=== PATIENT | female | born 1955 | race Caucasian/White ===

== ENCOUNTER 2019-08-14 11:26 | Emergency (ER) | payer MEDICARE, MEDICAID ==
[~2019-08-14] VITALS: Ht 157.5 cm; Wt 62.0 kg
[2019-08-14] MEDS ORDERED: KETOROLAC 30MG/ML VIAL IV STA (12:35)
[2019-08-14] MEDS ORDERED: SODIUM CHLORIDE 0.9% 1,000 ML IV ONE (12:35)
[2019-08-14] MEDS ORDERED: ONDANSETRON HCL 4MG/2ML INJ IV STA (12:35)
[2019-08-14] MEDS ORDERED: DICYCLOMINE 10 MG/5 ML ORAL SYR PO STA (12:35)
[2019-08-14] MEDS ORDERED: VISCOUS LIDOCAINE 2% 15 ML UDC PO STA (12:35)
[2019-08-14] MEDS ORDERED: MAGNESIUM/ALUMINUM HYDROXIDE/SIMETHICONE 30ML UDC PO STA ×2 (12:35)
[2019-08-14 13:09] LABS: CHLORIDE 106 mEq/L (98-107)
[2019-08-14 13:13] LABS: EOSINOPHILS % 0.4 % (0.0-5.0); HEMATOCRIT. 45.5 % (36.0-48.0); HEMOGLOBIN. 15.5 g/dL (12.0-16.0); LYMPHOCYTES % 28.1 % (20.0-50.0); MEAN CORPUSCULAR HEMOGLOBIN 28.1 pg (28.0-32.0); MEAN CORPUSCULAR VOLUME 82.8 fL (81.0-99.0); MEAN PLATELET VOLUME 7.7 fl (7.4-10.4); MONOCYTES % 5.3 % (2.0-8.0); NEUTROPHILS % 65.2 % (40.0-76.0); PLATELET 574 x1000/uL (130-400); RED CELL DISTRIBUTION WIDTH 12.9 % (11.6-14.6)
[2019-08-14 13:26] LABS: PROTHROMBIN TIME 10.1 sec (9.6-11.0)
[2019-08-14] MEDS ORDERED: POTASSIUM CHLORIDE 20MEQ TABLET SR PO ONE (14:30)
[2019-08-14] MEDS ORDERED: PANTOPRAZOLE SODIUM 40 MG/VIAL IV ONE (15:45)
[2019-08-14 22:28] VITALS: BP 132/76
== END 2019-08-14 22:54 | disposition short-term general hospital (02) ==
LOC: ER 11:26 → SUPCPDRO 17:00 → CANBEDREQ 19:10 → ER 22:54
DX: E87.6 Hypokalemia (principal); R11.2 Nausea with vomiting, unspecified; R00.1 Bradycardia, unspecified
CPT/HCPCS: 36415; 71045; 74176; 80053; 83690; 83735; 85025; 85610; 93005; 96361; 96365; 96375; 99285; C9113; J1885; J2405; J7030

== ENCOUNTER 2019-10-03 12:54 | Emergency (ER) | payer MEDICARE, MEDICAID ==
[~2019-10-03] VITALS: Ht 157.5 cm; Wt 68.0 kg
[2019-10-03] MEDS ORDERED: VISCOUS LIDOCAINE 2% 15 ML UDC PO STA (14:25)
[2019-10-03] MEDS ORDERED: FAMOTIDINE 20MG/2ML VIAL IV STA (14:25)
[2019-10-03] MEDS ORDERED: SODIUM CHLORIDE 0.9% 1,000 ML IV ONE (14:25)
[2019-10-03] MEDS ORDERED: MAGNESIUM/ALUMINUM HYDROXIDE/SIMETHICONE 30ML UDC PO STA (14:25)
[2019-10-03 14:44] LABS: BASOPHILS % 0.9 % (0.0-2.0); EOSINOPHILS % 0.4 % (0.0-5.0); HEMATOCRIT. 45.1 % (36.0-48.0); HEMOGLOBIN. 15.3 g/dL (12.0-16.0); LYMPHOCYTES % 28.2 % (20.0-50.0); MEAN CORPUSCULAR HEMOGLOBIN 28.4 pg (28.0-32.0); MEAN CORPUSCULAR VOLUME 83.5 fL (81.0-99.0); MEAN PLATELET VOLUME 7.9 fl (7.4-10.4); MONOCYTES % 7.5 % (2.0-8.0); PLATELET 482 x1000/uL (130-400); RED CELL DISTRIBUTION WIDTH 13.6 % (11.6-14.6)
[2019-10-03 14:50] LABS: CHLORIDE 101 mEq/L (98-107)
[2019-10-03 14:52] LABS: CLARITY URINE CLEAR (CLEAR); COLOR URINE YELLOW (YELLOW); KETONES URINE NEGATIVE (NEGATIVE); LEUKOCYTE ESTERASE URINE NEGATIVE (NEGATIVE); NITRITE URINE NEGATIVE (NEGATIVE); OCCULT BLOOD URINE NEGATIVE (NEGATIVE); PH URINE 7.5 (4.5-8.0); PROTEIN URINE NEGATIVE (NEGATIVE); SPECIFIC GRAVITY URINE 1.003 (1.005-1.030); UROBILINOGEN URINE 0.2 E.U./dL (0.2-1.0)
[2019-10-03 14:54] LABS: INR 1.1; PROTHROMBIN TIME 11.4 sec (9.6-11.0)
[2019-10-03] MEDS ORDERED: POTASSIUM CHLORIDE INJ 40 MEQ in DEXT 5% WATER 250 ML IV ONE (15:45)
[2019-10-03] MEDS ORDERED: POTASSIUM CHLORIDE 20MEQ TABLET SR PO ONE (15:45)
[2019-10-03 19:39] VITALS: BP 122/76
== END 2019-10-03 19:40 | disposition home or self-care (01) ==
LOC: ER 12:54
DX: E87.6 Hypokalemia (principal); K21.9 Gastro-esophageal reflux disease without esophagitis; Z88.0 Allergy status to penicillin; Z90.49 Acquired absence of other specified parts of digestive tract; Z98.890 Other specified postprocedural states
CPT/HCPCS: 36415; 80053; 81003; 82270; 83690; 83735; 85025; 85610; 96365; 96366; 96375; 99285; J3480; J3490; J7030; J7060

== ENCOUNTER 2019-11-30 16:13 | Emergency (ER) | payer MEDICARE, MEDICAID ==
[~2019-11-30] VITALS: Ht 154.9 cm; Wt 61.0 kg
[2019-11-30] MEDS ORDERED: FAMOTIDINE 20MG/2ML VIAL IV STA (17:07)
[2019-11-30] MEDS ORDERED: SODIUM CHLORIDE 0.9% 1,000 ML IV ONE (17:07)
[2019-11-30 18:03] LABS: BASOPHILS % 1.5 % (0.0-2.0); EOSINOPHILS % 0.4 % (0.0-5.0); HEMATOCRIT. 43.3 % (36.0-48.0); HEMOGLOBIN. 14.7 g/dL (12.0-16.0); LYMPHOCYTES % 24.9 % (20.0-50.0); MEAN CORPUSCULAR HEMOGLOBIN 28.6 pg (28.0-32.0); MEAN CORPUSCULAR VOLUME 83.9 fL (81.0-99.0); MEAN PLATELET VOLUME 7.5 fl (7.4-10.4); MONOCYTES % 8.1 % (2.0-8.0); NEUTROPHILS % 65.1 % (40.0-76.0); PLATELET 529 x1000/uL (130-400); RED BLOOD CELL COUNT 5.16 mill/uL (4.2-5.4); RED CELL DISTRIBUTION WIDTH 14.5 % (11.6-14.6)
[2019-11-30 18:08] LABS: CHLORIDE 98 mEq/L (98-107)
[2019-11-30 18:11] LABS: PROTHROMBIN TIME 10.8 sec (9.6-11.0)
[2019-11-30] MEDS ORDERED: KETOROLAC 15MG/ML VIAL IV ONE (18:30)
[2019-11-30 20:47] VITALS: BP 135/66
== END 2019-11-30 21:30 | disposition short-term general hospital (02) ==
LOC: ER 16:13 → CANBEDREQ 23:46
DX: R07.89 Other chest pain (principal); R10.9 Unspecified abdominal pain; K21.9 Gastro-esophageal reflux disease without esophagitis; Z90.49 Acquired absence of other specified parts of digestive tract; Z88.0 Allergy status to penicillin; Z98.890 Other specified postprocedural states
CPT/HCPCS: 36415; 71045; 80053; 83690; 84484; 85025; 85610; 93005; 96361; 96374; 96375; 99285; J1885; J3490; J7030

== ENCOUNTER 2020-01-27 23:59 | Emergency (ER) | payer MEDICARE, OTHER ==
[~2020-01-27] VITALS: Ht 154.9 cm; Wt 50.0 kg
[2020-01-28] MEDS ORDERED: ONDANSETRON HCL 4MG/2ML INJ IV STA (00:40)
[2020-01-28] MEDS ORDERED: SODIUM CHLORIDE 0.9% 1,000 ML IV ONE (00:40)
[2020-01-28 01:06] LABS: CHLORIDE 99 mEq/L (98-107)
[2020-01-28 01:08] LABS: BASOPHILS % 0.9 % (0.0-2.0); EOSINOPHILS % 0.7 % (0.0-5.0); HEMATOCRIT. 44.8 % (36.0-48.0); HEMOGLOBIN. 15.7 g/dL (12.0-16.0); LYMPHOCYTES % 32.9 % (20.0-50.0); MEAN CORPUSCULAR HEMOGLOBIN 29.6 pg (28.0-32.0); MEAN CORPUSCULAR VOLUME 84.7 fL (81.0-99.0); MEAN PLATELET VOLUME 8.4 fl (7.4-10.4); MONOCYTES % 8.3 % (2.0-8.0); NEUTROPHILS % 57.2 % (40.0-76.0); PLATELET 552 x1000/uL (130-400); RED BLOOD CELL COUNT 5.29 mill/uL (4.2-5.4); RED CELL DISTRIBUTION WIDTH 13.7 % (11.6-14.6)
[2020-01-28] MEDS ORDERED: POTASSIUM CHLORIDE 20MEQ TABLET SR PO ONE (02:00)
[2020-01-28] MEDS ORDERED: IOHEXOL-300 100 ML BOTTLE ONE (03:10)
[2020-01-28] MEDS ORDERED: ACETAMINOPHEN 325MG TABLET PO ONE (03:45)
[2020-01-28 04:57] VITALS: BP 115/56
== END 2020-01-28 04:58 | disposition home or self-care (01) ==
LOC: ER 23:59
DX: E87.6 Hypokalemia (principal); R06.00 Dyspnea, unspecified; K21.9 Gastro-esophageal reflux disease without esophagitis; M54.2 Cervicalgia; I10 Essential (primary) hypertension; E03.9 Hypothyroidism, unspecified
CPT/HCPCS: 36415; 70491; 71045; 80053; 83690; 84484; 85025; 93005; 99285; J2405; J7030; Q9967

== ENCOUNTER 2021-09-05 13:43 | Emergency (ER) | payer OTHER, MEDICAID ==
[~2021-09-05] VITALS: Ht 154.9 cm; Wt 72.0 kg
[2021-09-05 15:43] LABS: BASOPHILS % 0.6 % (0.0-2.0); EOSINOPHILS % 0.4 % (0.0-5.0); HEMOGLOBIN. 15.2 g/dL (12.0-16.0); LYMPHOCYTES % 16.5 % (20.0-50.0); MEAN CORPUSCULAR HEMOGLOBIN 27.8 pg (28.0-32.0); MEAN CORPUSCULAR VOLUME 84.2 fL (81.0-99.0); MEAN PLATELET VOLUME 7.2 fl (7.4-10.4); MONOCYTES % 6.9 % (2.0-8.0); NEUTROPHILS % 75.6 % (40.0-76.0); PLATELET 642 x1000/uL (130-400); RED BLOOD CELL COUNT 5.46 mill/uL (4.2-5.4)
[2021-09-05 19:15] LABS: CLARITY URINE CLOUDY (CLEAR); COLOR URINE DARK YELLOW (YELLOW); KETONES URINE 1+ (NEGATIVE); LEUKOCYTE ESTERASE URINE TRACE (NEGATIVE); NITRITE URINE NEGATIVE (NEGATIVE); OCCULT BLOOD URINE NEGATIVE (NEGATIVE); PROTEIN URINE 1+ (NEGATIVE); SPECIFIC GRAVITY URINE 1.027 (1.005-1.030)
[2021-09-05] MEDS ORDERED: NITR-87 MT (21:36)
[2021-09-05] MEDS ORDERED: NITROFURANTOIN 100MG M/M CAPSULE PO NR (21:45)
[2021-09-05 22:00] VITALS: BP 138/86
== END 2021-09-05 22:10 | disposition home or self-care (01) ==
LOC: ER 13:43
DX: R33.8 Other retention of urine (principal); D72.829 Elevated white blood cell count, unspecified; I10 Essential (primary) hypertension; E05.90 Thyrotoxicosis, unspecified without thyrotoxic crisis or storm
CPT/HCPCS: 36415; 80048; 81003; 85025; 99283; A4315